=== PATIENT | male | born 1970 | race Caucasian/White ===

== ENCOUNTER → 2017-06-27 13:45 | Outpatient (CLI) | payer OTHER, SELFPAY ==
--- NOTE | 2017-06-27 13:58 | RAD_ITS ---
STUDY: X-RAY CHEST REASON FOR EXAM: Male, 46 years old. Fatigue. TECHNIQUE: Single AP portable view of the chest. COMPARISON: None. FINDINGS: Lungs are mildly hyperexpanded. There are multiple small nodular densities suggesting calcified granulomata. There is no consolidation. There is no demonstrated pleural abnormality. Normal size heart. Normal mediastinum and emery. Normal visualized pulmonary arteries. There is atherosclerotic calcification of the aortic arch with tortuosity. There are diffuse degenerative changes of the visualized thoracic spine. Normal visualized ribs, clavicles, and shoulders. There is no demonstrated abnormality of the visualized soft tissue structures of the upper abdomen. RAD/Chest PA and Lateral IMPRESSION: Probable old granulomatous disease without acute cardiopulmonary process. Electronically Signed: Beltran Shepherd DO at 18:55 EDT Tel [phone], Service support ,
[2017-06-27 15:39] LABS: Hematocrit 46.2 % (40-54); Hemoglobin 15.9 g/dl (13.0-16.5); Mean Corp Hgb Conc 34.4 g/gl (32-36); Mean Corpuscular Hgb 31.6 pg (27.0-32.0); Mean Corpuscular Volume 91.8 fL (80-94); Mean Platelet Vol. 10.9 fl (6.2-12.0); Platelet Count 220 K/mm3 (150-450); RBC Distribution Width CV 12.4 % (11.6-14.6); RBC Distribution Width SD 41.2 fl (35.1-43.9); Red Blood Count 5.03 M/mm3 (4.6-6.2); White Blood Count 6.8 K/mm3 (4.4-11.0)
[2017-06-27 15:46] LABS: Scan Indicated on CBC? Y/N NO
[2017-06-27 16:00] LABS: Vitamin B12 339 pg/mL (211-911); Vitamin D,25 Hydroxy 6.9 ng/mL (29.95-100.01)
[2017-06-27 16:03] LABS: Erythrocyte Sedimentation Rate 18 mm/hr (0-15)
[2017-06-27 16:13] LABS: Hemoglobin A1c 7.4 % (4.2-6.3)
[2017-06-27 16:14] LABS: AST(SGOT) 49 U/L (15-37); Alanine Aminotransfer ALT/SGPT 74 U/L (16-61); Albumin, Serum 4.3 g/dL (3.2-5.0); Alkaline Phosphatase 70 U/L (45-117); Anion Gap 12 (5-15); BUN 14 mg/dL (7-18); BUN/Creat Ratio 17.9 RATIO (10-20); Calcium,Total 9.2 mg/dL (8.5-10.1); Chloride 96 mmol/L (98-107); Creatinine, Serum 0.78 mg/dL (0.70-1.30); EST Glomerular Filtration Rate 112 mL/min (>60); Est Glom Filt Rate - Afr Amer 136 mL/min (>60); Globulin 4.2 g/dL (2.2-4.2); Glucose 134 mg/dL (74-106); Potassium 3.6 mmol/L (3.5-5.1); Protein, Total 8.5 g/dL (6.4-8.2); Sodium Level 134 mmol/L (136-145); Thyroid Stim Hormone (TSH) 2.63 uIU/mL (0.358-3.74)
== END ==
PROVIDERS: Family Provider Family Medicine; PCP Family Medicine; Visit Provider Family Medicine
DX: R53.83 Other fatigue (principal)
CPT/HCPCS: 36415; 71046; 80053; 82306; 82607; 83036; 84403; 84443; 84484; 85027; 85652

== ENCOUNTER → 2017-07-20 08:13 | Outpatient (CLI) | payer OTHER, SELFPAY ==
--- NOTE | 2017-07-20 09:18 | STRESSREP ---
Stress Test Report Date: 07/20/2017 Procedure: Exercise tolerance test Indications: Fatigue Consent: Per the patient Procedure: The patient exercised on a Charly protocol for 8 minutes and 30 seconds completing Stage II and 2 minutes and 30 seconds of Stage III achieving a peak heart rate of 160 bpm (93 % predicted maximal heart rate) with a peak blood pressure 176/78 mmHg and a peak MET capacity of approximately 6 MET's. The baseline ECG demonstrated normal sinus rhythm with nonspecific ST and T-wave abnormality. The peak exercise ECG demonstrated somatic/motion artifact with continued nonspecific ST and T-wave abnormality with recovery ECG demonstrating more prominent T-wave abnormality (inversion) in leads II, III, aVF, and V4 through V6 compared with baseline with gradual resolution towards baseline. There were occasional PVCs during exercise. The functional capacity was considered average. The patient had no complaint of chest discomfort during exercise or recovery. The examination was discontinued secondary to dyspnea and chest discomfort. Impression: 1. Technically adequate (percent predicted maximal heart rate greater than 85%) exercise tolerance test 2. Peak exercise ECG with somatic/motion artifact with continued nonspecific ST and T-wave abnormality with recovery ECG demonstrating more prominent T-wave abnormality (inversion) in leads II, III, aVF, and V4 through V6 compared with baseline with gradual resolution towards baseline 3. Occasional PVCs during exercise Comment: The patient noted dyspnea with associated chest discomfort during exercise with spontaneous resolution towards baseline in recovery. Consider further evaluation with additional cardiovascular noninvasive/imaging studies and/or invasive cardiovascular studies as deemed appropriate. This note was generated with [employer]ation software. It may contain incorrect words, spelling, and punctuation that were not noted in checking the note before signing.
--- NOTE | 2017-07-20 09:26 | STRESSREP_ITS ---
Stress Test Report Date: 07/20/2017 Procedure: Exercise tolerance test Indications: Fatigue Consent: Per the patient Procedure: The patient exercised on a Charly protocol for 8 minutes and 30 seconds completing Stage II and 2 minutes and 30 seconds of Stage III achieving a peak heart rate of 160 bpm (93 % predicted maximal heart rate) with a peak blood pressure 176/78 mmHg and a peak MET capacity of approximately 6 MET's. The baseline ECG demonstrated normal sinus rhythm with nonspecific ST and T- wave abnormality. The peak exercise ECG demonstrated somatic/motion artifact with continued nonspecific ST and T-wave abnormality with recovery ECG demonstrating more prominent T-wave abnormality (inversion) in leads II, III, aVF, and V4 through V6 compared with baseline with gradual resolution towards baseline. There were occasional PVCs during exercise. The functional capacity was considered average. The patient had no complaint of chest discomfort during exercise or recovery. The examination was discontinued secondary to dyspnea and chest discomfort. Impression: 1. Technically adequate (percent predicted maximal heart rate greater than 85% ) exercise tolerance test 2. Peak exercise ECG with somatic/motion artifact with continued nonspecific ST and T-wave abnormality with recovery ECG demonstrating more prominent T-wave abnormality (inversion) in leads II, III, aVF, and V4 through V6 compared with baseline with gradual resolution towards baseline 3. Occasional PVCs during exercise Comment: The patient noted dyspnea with associated chest discomfort during exercise with spontaneous resolution towards baseline in recovery. Consider further evaluation with additional cardiovascular noninvasive/imaging studies and/or invasive cardiovascular studies as deemed appropriate. This note was generated with [employer] software. It may contain incorrect words, spelling, and punctuation that were not noted in checking the note before signing.
== END ==
PROVIDERS: Family Provider Family Medicine; PCP Family Medicine; Visit Provider Family Medicine
DX: R53.83 Other fatigue (principal)
CPT/HCPCS: 93017

== ENCOUNTER → 2017-08-10 12:14 | Outpatient (CLI) | payer OTHER, SELFPAY ==
--- NOTE | 2017-08-10 12:33 | RAD_ITS ---
STUDY: X-RAY CHEST REASON FOR EXAM: Male, 46 years old. Chest pain scheduled for heart catheterization. TECHNIQUE: PA and lateral views of the chest. COMPARISON: June 27, 2017 chest x-ray FINDINGS: The lungs are clear and expanded. There is no demonstrated pleural abnormality. Normal size heart. Normal mediastinum and emery. Normal visualized pulmonary arteries. Normal visualized aortic arch and descending thoracic aorta. There are diffuse degenerative changes of the visualized thoracic spine. Normal visualized ribs, clavicles, and shoulders. There is no demonstrated abnormality of the visualized soft tissue structures of the upper abdomen. RAD/Chest PA and Lateral IMPRESSION: Degenerative changes, as described above. No demonstrated acute cardiopulmonary process. Electronically Signed: Gisela Lucio MD at 13:55 EDT Tel , Service support ,
[2017-08-10 13:04] LABS: Absolute Lymphocyte Count 2.02 X10^3/ul (0.83-4.51); Absolute Neutrophil Count 4.9 X10^3/uL (2.0-7.7); Basophil# 0.07 X10^3/uL; Basophil% 0.9 % (0-1); Eosinophil# 0.24 X10^3/uL; Eosinophils% 3.1 % (0-5); Hematocrit 42.6 % (40-54); Hemoglobin 14.7 g/dl (13.0-16.5); Lymphocyte # 2.02 X10^3/ul (4.0); Lymphocyte % 25.8 % (19-41); Mean Corp Hgb Conc 34.5 g/gl (32-36); Mean Corpuscular Hgb 31.7 pg (27.0-32.0); Mean Corpuscular Volume 91.8 fL (80-94); Mean Platelet Vol. 10.4 fl (6.2-12.0); Monocyte# 0.59 X10^3/uL; Monocyte% 7.5 % (0-10); Neutrophil # 4.85 X10^3/uL (2.7-7.7); Neutrophil % 62.1 % (47-70); Platelet Count 215 K/mm3 (150-450); RBC Distribution Width CV 12.4 % (11.6-14.6); RBC Distribution Width SD 40.9 fl (35.1-43.9); Red Blood Count 4.64 M/mm3 (4.6-6.2); White Blood Count 7.8 K/mm3 (4.4-11.0)
[2017-08-10 13:05] LABS: POSITIVE COUNT NO; POSITIVE DIFFERENTIAL NO; POSITIVE MORPHOLOGY NO
[2017-08-10 13:14] LABS: Prothrombin Time (Protime)PT. 13.6 SECONDS (11.7-14.9)
[2017-08-10 13:22] LABS: Anion Gap 8 (5-15); BUN 11 mg/dL (7-18); BUN/Creat Ratio 11.7 RATIO (10-20); Calcium,Total 9.4 mg/dL (8.5-10.1); Chloride 101 mmol/L (98-107); Creatinine, Serum 0.94 mg/dL (0.70-1.30); EST Glomerular Filtration Rate 91 mL/min (>60); Est Glom Filt Rate - Afr Amer 110 mL/min (>60); Glucose 132 mg/dL (74-106); Potassium 3.6 mmol/L (3.5-5.1); Sodium Level 138 mmol/L (136-145)
== END ==
PROVIDERS: Family Provider Family Medicine; PCP Family Medicine; Visit Provider Internal Medicine Cardiovascular Disease
DX: R07.9 Chest pain, unspecified (principal); R94.39 Abnormal result of other cardiovascular function study
CPT/HCPCS: 36415; 71046; 80048; 85025; 85610; 85730

== ENCOUNTER → 2017-08-20 10:32 | Outpatient (CLI) | payer OTHER, SELFPAY ==
--- NOTE | 2017-08-20 10:34 | ECHOD_ITS ---
Reason For Study: CHEST PAIN Procedure This was a 2D Doppler, Color Flow transthoracic echocardiogram. Exam performed portable in patient room. Left Ventricle The left ventricle is not well visualized. Left ventricular systolic function is normal. The estimated ejection fraction is 65 %. No evidence for diastolic dysfunction. No regional wall motion abnormalities noted. Right Ventricle Normal RV size. Normal systolic function. Atria Normal left atrium. Normal right atrium. No doppler evidence for ASD. Mitral Valve There is no mitral annular calcification. Normal mitral valve. Trivial mitral valve insufficiency. Tricuspid Valve Normal tricuspid valve. Trivial tricuspid valve insufficiency. Aortic Valve Trisinus/trileaflet aortic valve. Normal aortic valve. Pulmonic Valve The pulmonic valve is not well visualized. Trivial pulmonic valve insufficiency. Great Vessels Normal sized aortic root. Pericardium/Pleural No pericardial effusion. MMode/2D Measurements & Calculations LVIDd: 4.9 cm IVSd: 0.95 cm Ao root diam: 3.4 cm LVIDs: 3.3 cm FS: 32.6 % RVDd: 3.2 cm LAV(MOD-bp): 41.5 ml EDV(MOD-sp4): 132.8 ml EDV(MOD-sp2): 69.9 ml LAV(MOD-bp) Indexed: 17.6 ml/m2 ESV(MOD-sp4): 46.6 ml EF(MOD-sp2): 71.7 % LAV(MOD-sp2): 40.5 ml EF(MOD-sp4): 64.9 % LAV(MOD-sp4): 38.3 ml SV(MOD-sp4): 86.2 ml SV(MOD-sp2): 50.1 ml LA A4 area: 15.5 cm2 RA A4 area: 13.7 cm2 Doppler Measurements & Calculations MV E max reyes: 63.5 cm/sec Lat Peak E' Reyes: 11.5 cm/sec Med Peak E' Reyes: 8.6 cm/sec MV A max reyes: 54.7 cm/sec E/E' lat: 5.5 E/E' med: 7.3 MV E/A: 1.2 Ao V2 max: 132.9 cm/sec LV V1 max: 111.0 cm/sec Ao max P.1 mmHg LV V1 max P.9 mmHg Interpretation Summary Left ventricular systolic function is normal. The estimated ejection fraction is 65 %. Trivial mitral valve insufficiency. Trivial tricuspid valve insufficiency. Trivial pulmonic valve insufficiency. Ordering Physician: Ramin Mercer Referring Physician: GYPSY LUKE Performed By: Ara Grijalva, TYLER, RVT
== END ==
PROVIDERS: Family Provider Family Medicine; PCP Family Medicine; Visit Provider Internal Medicine Cardiovascular Disease
DX: R94.39 Abnormal result of other cardiovascular function study (principal)
CPT/HCPCS: 93306

== ENCOUNTER 2017-08-21 07:56 | Day surgery (SDC) | payer OTHER, SELFPAY ==
[2017-08-20 08:40] VITALS: BMI 34.9
[2017-08-21 10:26] LABS: ACT Activated Clotting Time 180 sec (74-137)
--- NOTE | 2017-08-21 10:30 | CL.D_ITS ---
Patient Name: KARINA DE OLIVEIRA Study Date: 08/21/2017 Performing: Ramin Mercer MD Ht: 72.04 inches 183 cm : 1970 Wt: 257.94 lbs 117 kg Age: 46 Gender: male BSA: 2.37 PROCEDURE(S) PERFORMED [id number], CORONARY OR GRAFT, INITIAL VESSEL CLINICAL PROFILE AND INDICATIONS Indications: Suspected CAD Heart Failure: None Stress/Imaging Standard Exercise Stress Test: Yes Result: Positive Angina Classification Anginal Classification w/in 2 Weeks: CCS III CAD Presentations: Stable angina. CONCLUSIONS Elevated Left Ventricular End Diastolic Pressure Normal LV size, wall motion,and systolic function LVEF: by LV gram 65 % [place] Multivessel CAD (especially RCA) RECOMMENDATIONS Medical therapy Risk factor modification Staged for FFR DESCRIPTION OF PROCEDURE The patient arrived to the procedure lab. The risks and benefits of the procedure as well as a full d escription of our services here and current unavailability of surgical backup were fully explained to the patient and/or their significant other prior to the catheterization. The Timeout was completed, verifying the correct patient and procedure. The patient's procedural site was prepped and draped in the usual fashion. Local anesthetic was given subcutaneously to right radial region with Lidocaine 2% . Using a modified Seldinger technique, arterial access was obtained via the right radial artery, a 6 Fr sheath was inserted. Right Coronary Artery selective angiography was then performed in multiple v iews using a 5 Fr. 4.0 [place] catheter. Left Coronary Artery selective angiography was performed in mu ltiple views using a 5 Fr. 4.0 [place] catheter. Left Ventriculography was performed in [place] projection using a 5 Fr. Pigtail catheter. LV to AO pullback pressures were then recorded.The arterial sheath wa s pulled and a TR Band was applied for hemostasis 18cc air inserted CORONARY ANGIOGRAPHY DOMINANCE: Right Dominant LEFT HEART ASSESSMENT Left Ventricular Ejection Fraction: by LV Gram 65 % Normal LV wall motion Elevated Left Ventricular End Diastolic Pressure LVEDP: 20 mmHg LEFT MAIN: Angiographically normal LEFT ANTERIOR DECENDING ARTERY: PROX LAD: Mild luminal irregularities CIRCUMFLEX ARTERY: PROX CIRC: Mild luminal irregularities RIGHT CORONARY ARTERY: Mild luminal irregularities PROX RCA: Eccentric: Hazy: 25-50 % Stenosis VALVE FINDINGS: Normal Aortic Valve function Normal Mitral Valve function AORTIC ROOT: Angiographically normal COMPLICATIONS No Complications PROCEDURE MEDICATIONS Fentanyl 50 mcg IV Versed 1 mg IV Fentanyl 50 mcg IV Versed 1 mg IV Oxygen: 2 L/min via nasal cannula Heparin diluted in 23cc Heparinized saline. Patient given 10cc IA of this solution. 08/21/2017 09:35: 57 Heparin 5000 unit(s) IV 08/21/2017 10:01:47 Verapamil 2.5mg, Ntg 100mcgs, 2000 units of Heparin diluted in 23cc Heparinized saline. Patient give n 10cc IA of this solution. 08/21/2017 09:35:57 SUMMARY OF HEMODYNAMIC DATA Time AIR REST ECG 08:26:24 AO 92/60 (76) SA 09:38:24 AO 97/68 (81) 09:42:51 LV 126/1, 18 09:48:40 LV 123/3, 20 09:48:46 LV 125/0, 16 09:49:59 LV 121/5, 24 09:50:07 LVp 125/4, 21 09:50:15 AOp 116/70 (92) 09:50:21 AO 118/59 (79) 09:53:47 Signed By Ramin Mercer MD On 08/21/2017 10:29:23 Ramin Mercer MD
--- NOTE | 2017-08-21 10:31 | CL.I_ITS ---
Patient Name: KARINA DE OLIVEIRA Study Date: 08/21/2017 Performing: Todd Wang MD Ht: 72.04 inches 183 cm : 1970 Wt: 257.94 lbs 117 kg Age: 46 Gender: male BSA: 2.37 PROCEDURE(S) PERFORMED [id number], CORONARY OR GRAFT, INITIAL VESSEL CLINICAL PROFILE AND CO-MORBIDITIES Indications: Suspected CAD Heart Failure: None Stress/Imaging Standard Exercise Stress Test: Yes Result: Positive Angina Classification Anginal Classification w/in 2 Weeks: CCS III CAD Presentations: Stable angina. CONCLUSIONS iFR Prox RCA 0.99 RECOMMENDATIONS Risk factor modification Medical therapy Follow up with Dr. Mercer DESCRIPTION OF PROCEDURE The patient arrived to the procedure lab. The risks and benefits of the procedure as well as a full d escription of our services here and current unavailability of surgical backup were fully explained to the patient and/or their significant other prior to the catheterization. The Timeout was completed, verifying the correct patient and procedure. The patient's procedural site was prepped and draped in the usual fashion. Local anesthetic was given subcutaneously to right radial region with Lidocaine 2% Using a modified Seldinger technique,arterial access was obtained via the right radial artery, a 6Fr sheath was inserted. Right Coronary Artery selective angiography was then performed in multiple view s using a 5 Fr. 4.0 [place] catheter. Left Coronary Artery selective angiography was performed in multi ple views using a 5 Fr. 4.0 [place] catheter. Left Ventriculography was performed in [place]RAN projection usi ng a 5 Fr. Pigtail catheter. LV to AO pullback pressures were then recorded.The images were reviewed and options discussed. A decision was then made to proceed with an Intervention, IVUS or other adjunc t procedure. JR4 Guide catheter was inserted and engaged into the RCA. The FFR/iFR wire was inserted. Pressures an d FFR/iFR were then recorded. iFR measurements were performed. iFR Ratio: 0.99 The FFR/iFR wire was t hen removed. The arterial sheath was pulled and a TR Band was applied for hemostasis 18cc air inser teja INTERVENTION INFORMATION LESION SITE: RCA (Proximal) PROCEDURE: iFR Lesion Devices: Orange Coronary FFR Wire Cordis 6 Fr JR4 100cm Guide Catheter COMPLICATIONS No Complications PROCEDURE MEDICATIONS Fentanyl 50 mcg IV Versed 1 mg IV Fentanyl 50 mcg IV Versed 1 mg IV Oxygen: 2 L/min via nasal cannula Heparin diluted in 23cc Heparinized saline. Patient given 10cc IA of this solution. 08/21/2017 09:35: 57 Heparin 5000 unit(s) IV 08/21/2017 10:01:47 Verapamil 2.5mg, Ntg 100mcgs, 2000 units of Heparin diluted in 23cc Heparinized saline. Patient give n 10cc IA of this solution. 08/21/2017 09:35:57 SUMMARY OF HEMODYNAMIC DATA Time AIR REST ECG 08:26:24 AO 92/60 (76) SA 09:38:24 AO 97/68 (81) 09:42:51 LV 126/1, 18 09:48:40 LV 123/3, 20 09:48:46 LV 125/0, 16 09:49:59 LV 121/5, 24 09:50:07 LVp 125/4, 21 09:50:15 AOp 116/70 (92) 09:50:21 AO 118/59 (79) 09:53:47 Signed By Todd Wang MD On 08/21/2017 10:31:08 Todd Wang MD
== END 2017-08-21 23:59 | disposition home or self-care (01) ==
LOC: CLSP 07:56
PROVIDERS: Family Provider Family Medicine; PCP Family Medicine; Visit Provider Internal Medicine Cardiovascular Disease
DX: I25.110 Atherosclerotic heart disease of native coronary artery with unstable angina pectoris (principal); I50.1 Left ventricular failure, unspecified; R94.39 Abnormal result of other cardiovascular function study; E78.5 Hyperlipidemia, unspecified; I10 Essential (primary) hypertension; E11.9 Type 2 diabetes mellitus without complications; Z79.84 Long term (current) use of oral hypoglycemic drugs; Z79.82 Long term (current) use of aspirin; Z79.899 Other long term (current) drug therapy
CPT/HCPCS: 85347; 93458; 93571; 99152; 99153; J0153; J7030; Q9967; C1769; C1887; C1894

== ENCOUNTER → 2019-01-09 14:33 | Outpatient (CLI) | payer OTHER, SELFPAY ==
[2018-04-08 13:33] VITALS: BMI 34.8
[2019-01-10 09:39] LABS: ALB/GLOB Ratio 1.2 RATIO (0.9-2.4); AST(SGOT) 42 U/L (15-37); Alanine Aminotransfer ALT/SGPT 64 U/L (16-61); Albumin, Serum 4.2 g/dL (3.2-5.0); Alkaline Phosphatase 67 U/L (45-117); Anion Gap 9 (5-15); BUN 15 mg/dL (7-18); BUN/Creat Ratio 15.9 RATIO (10-20); Calcium,Total 8.8 mg/dL (8.5-10.1); Chloride 99 mmol/L (98-107); Creatinine, Serum 0.95 mg/dL (0.70-1.30); EST Glomerular Filtration Rate 90 mL/min (>60); Est Glom Filt Rate - Afr Amer 108 mL/min (>60); Globulin 3.6 g/dL (2.2-4.2); Glucose 147 mg/dL (74-106); PSA,Total - Annual Screen 0.14 ng/mL (0.00-4.00); Potassium 4.1 mmol/L (3.5-5.1); Protein, Total 7.8 g/dL (6.4-8.2); Sodium Level 133 mmol/L (136-145); Thyroid Stim Hormone (TSH) 1.86 uIU/mL (0.358-3.74)
[2019-01-10 10:13] LABS: Vitamin B12 397 pg/mL (211-911); Vitamin D,25 Hydroxy 16.4 ng/mL (29.95-100.01)
== END ==
PROVIDERS: Family Provider Family Medicine; PCP Family Medicine; Referring Provider Family Medicine; Visit Provider Family Medicine
DX: E11.9 Type 2 diabetes mellitus without complications (principal); E55.9 Vitamin D deficiency, unspecified; E53.8 Deficiency of other specified B group vitamins; Z12.5 Encounter for screening for malignant neoplasm of prostate
CPT/HCPCS: 36415; 80053; 82306; 82607; 84153; 84403; 84443; G0103

== ENCOUNTER → 2020-03-03 | Outpatient (CLI) | payer OTHER, SELFPAY ==
[2019-04-21 13:54] VITALS: BMI 34.2
== END | disposition home or self-care (01) ==
PROVIDERS: Visit Provider Family Medicine
DX: Z20.828 Contact with and (suspected) exposure to other viral communicable diseases (principal)
CPT/HCPCS: 87635; U0003

== ENCOUNTER 2020-04-20 09:00 | Outpatient (RCR) | payer OTHER, SELFPAY ==
[2019-04-21 13:54] VITALS: BMI 34.2
== END 2020-04-20 23:59 ==
LOC: IMMUN 09:00
PROVIDERS: PCP Family Medicine; Visit Provider Family Medicine
DX: Z23 Encounter for immunization (principal)
CPT/HCPCS: 0011A; 0012A; 91301

== ENCOUNTER → 2020-11-03 06:09 | Outpatient (CLI) | payer OTHER, SELFPAY ==
[2020-05-03 13:59] VITALS: BMI 33.7
[2020-11-03 08:38] LABS: AST(SGOT) 52 U/L (15-37); Alanine Aminotransfer ALT/SGPT 73 U/L (16-61); Alkaline Phosphatase 70 U/L (45-117); Anion Gap 11 (5-15); BUN 12 mg/dL (7-18); BUN/Creat Ratio 16.8 RATIO (10-20); Calcium,Total 9.3 mg/dL (8.5-10.1); Chloride 96 mmol/L (98-107); Cholesterol 165 mg/dL (200); Creatinine, Serum 0.72 mg/dL (0.70-1.30); EST Glomerular Filtration Rate 123 mL/min (>60); Est Glom Filt Rate - Afr Amer 149 mL/min (>60); Globulin 4.1 g/dL (2.2-4.2); Glucose 163 mg/dL (74-106); High Density Lipoprotein 28 mg/dL; PSA,Total - Annual Screen 0.36 ng/mL (0.00-4.00); Potassium 3.6 mmol/L (3.5-5.1); Protein, Total 8.1 g/dL (6.4-8.2); Sodium Level 133 mmol/L (136-145); Thyroid Stim Hormone (TSH) 3.33 uIU/mL (0.358-3.74); Triglycerides 654 mg/dL
[2020-11-03 08:48] LABS: Vitamin B12 330 pg/mL (211-911); Vitamin D,25 Hydroxy 16.5 ng/mL
== END ==
PROVIDERS: PCP Family Medicine; Referring Provider Family Medicine; Visit Provider Family Medicine
DX: E11.9 Type 2 diabetes mellitus without complications (principal); E55.9 Vitamin D deficiency, unspecified; E53.8 Deficiency of other specified B group vitamins; Z12.5 Encounter for screening for malignant neoplasm of prostate
CPT/HCPCS: 36415; 80053; 80061; 82306; 82607; 84153; 84403; 84443; G0103

== ENCOUNTER 2021-06-28 09:27 | Outpatient (CLI) | payer OTHER, SELFPAY ==
--- NOTE | 2021-06-28 09:31 | RAD_ITS ---
STUDY: X-RAY - LEFT ANKLE REASON FOR EXAM: Male, 50 years old. ? DISTAL FIBULA FX TECHNIQUE: 3 view(s) of the ankle. COMPARISON: None. FINDINGS: There is an acute minimally displaced fracture of the distal fibula. Normal medial malleoli. Normal tibiotalar articulation and ankle mortise. The visualized plantar spur. The visualized subtalar, talonavicular, calcaneocuboid and tarsal articulations are normal. There is superficial soft tissue edema. RAD/Ankle min 3 Views IMPRESSION: Soft tissue edema lateral malleolus. Minimally displaced fracture of the distal fibula. Electronically Signed: Gisela Lucio MD at 5:22 EDT Reading Location ID and State: [facility] / [place] Tel , Service support ,
== END 2021-06-28 23:59 | disposition home or self-care (01) ==
PROVIDERS: PCP Family Medicine; Referring Provider Family Medicine; Visit Provider Family Medicine
DX: M25.572 Pain in left ankle and joints of left foot (principal)
CPT/HCPCS: 73610